=== PATIENT | male | born 1955 | race Caucasian/White ===

== ENCOUNTER 2021-04-12 19:42 | Observation (INO) | payer OTHER, SELFPAY ==
[2021-04-12] VITALS (10 sets, daily range): BP systolic 111–175; BP diastolic 70–86; PULSE 60–85; RESP 18–28; TEMP 36.2–37; O2SAT 93–100
--- NOTE | ~2021-04-12 | CT_ITS ---
EXAMINATION: CT brain wo con DATE: 04/13/2021 13:32 INDICATION: Right arm decreased range of motion post drug overdose TECHNIQUE: Computed tomography (CT) of the head was performed without intravenous contrast. Sagittal and coronal reconstructions were performed. The mA was adjusted according to patient size. Iterative reconstruction technique was employed. The dose-length product was 605.33 mGy-cm. COMPARISON: head CT dated 04/12/2021 FINDINGS: No acute intracranial hemorrhage, acute infarction or abnormal extra axial fluid collection. There is mild scattered white matter hypoattenuation consistent with chronic small vessel ischemic disease. V entricles are normal and symmetric. No mass/mass effect. Small right mastoid effusion. The orbits are normal. Mild mucosal thickening throughout the paranasal sinuses. IMPRESSION: 1. No acute intracranial process. 2. Mild scattered white matter hypoattenuation consistent with chronic small vessel ischemic disease. Reviewed, dictated and finalized at location A. R HEAD PUNCHER IMPRESSION: 1. No acute intracranial process. 2. Mild scattered white matter hypoattenuation consistent with chronic small ve ssel ischemic disease.
--- NOTE | ~2021-04-12 | CT_ITS ---
EXAMINATION: CT brain wo con DATE: 04/12/2021 20:33 INDICATION: Altered mental status. TECHNIQUE: Computed tomography (CT) of the head was performed without intravenous contrast. The dose- length product was 681.00 mGy-cm. Automated exposure control and iterative reconstruction technique w ere employed. COMPARISON: None FINDINGS: There are scattered mild periventricular and subcortical white matter changes, most likely related to small vessel ischemic disease (microangiopathy). No ventriculomegaly or midline shift. Bas ilar cisterns are patent. Mild mucosal thickening of the paranasal sinuses. Mastoids are pneumatized. No acute intracranial hemorrhage, infarction, mass or mass effect. IMPRESSION: 1. No acute intracranial abnormality. 2: Chronic age-related findings. Reviewed, dictated and finalized at location A. E KEEPER
--- NOTE | ~2021-04-12 | XR_ITS ---
EXAMINATION: XR chest 1V portable 04/12/2021 20:33 INDICATION: Respiratory distress PROCEDURE: AP portable chest COMPARISON: No prior studies for comparison. FINDINGS: The lungs are clear. The cardiomediastinal silhouette is within normal limits. There are no pleural effusions. There is no pneumothorax suspected. There is deformity of the left acromiocla vicular joint suggesting chronic AC separation. Possible distal clavicular osteotomy. IMPRESSION: 1: NO ACUTE CARDIOPULMONARY DISEASE. Reviewed, dictated and finalized at location A. EGE AND CAREER COUNSELOR
--- NOTE | ~2021-04-12 | CT_ITS ---
EXAMINATION: CT abdomen pelvis w con DATE: 04/12/2021 21:38 INDICATION: Overdose. Abdominal pain with nausea. TECHNIQUE: Computed tomography (CT) of the abdomen and pelvis was performed with 100 cc Omnipaque 350 intravenous contrast. The dose-length product was 1474.45 mGy-cm. Automated exposure control and ite rative reconstruction technique were employed. COMPARISON: None. FINDINGS: There are patchy groundglass opacities in the lung bases, consistent with pneumonia. Heart size normal. No significant pleural or pericardial effusion. No significant vascular abnormality. The re is a Polo catheter in the bladder. Prostate gland is enlarged. Fatty infiltration of the liver. The spleen, pancreas, adrenal glands and kidneys are unremarkable. G allbladder is present. There is gastric distention with large amount of fluid and debris in the stoma ch. No abnormal pelvic masses or fluid collections. No free air or free fluid. IMPRESSION: 1. Patchy bibasilar groundglass opacities, consistent with pneumonia. Consider aspiration given the c linical history. Reviewed, dictated and finalized at location A. ARC WELDER IMPRESSION: 1. Patchy bibasilar groundglass opacities, consistent with pneumonia. Consider aspiration given the clinical history.
--- NOTE | 2021-04-12 19:48 | ECG_ITS ---
Measurements Intervals [place] Rate: 61 P: -65 TN: 175 QRS: -52 QRSD: 119 T: 59 QT: 478 QTc: 483 Interpretive Statements ECTOPIC ATRIAL RHYTHM LEFT AXIS DEVIATION INCOMPLETE RIGHT BUNDLE BRANCH BLOCK BORDERLINE ST-T WAVE ABNORMALITY- LAT/HIGH LAT LEADS BASELINE ARTIFACT- I, II, III, AVR, AVL, AVF, V1-V6 ABNORMAL ECG Electronically Signed On 04-13-2021 7:56:20 TONE ARTIST APPRENTICE by Arturo Romero D.O.
--- NOTE | 2021-04-12 19:51 | ED.AMS ---
HPI - Altered Mental Status General Chief Complaint: Overdose Stated Complaint: AMB Time Seen by Provider: 04/12/21 19:42 Source: patient Mode of arrival: EMS Limitations: altered mental status History of Present Illness HPI narrative: 65-year-old man with a history of drug use brought to the emergency department after his family found him unconscious and blue and not breathing. He was given a total of 8.5 mg of Narcan and became arousable but not oriented. He required oxygen by nasal cannula to maintain normal sats. Patient complains of nausea and abdominal pain. His glucose in the ambulance was in the 150s. MD complaint: altered mental status, confusion and decreased responsiveness Onset (ago): unknown Severity: severe Consistency of symptoms: constant Context: drug abuse Associated symptoms: nausea/vomiting, shortness of breath and other (Abdominal pain) Treatments prior to arrival: IV fluid, oxygen and other (Narcan) Related Data Home Medications Medication Instructions Recorded Confirmed albuterol sulfate [ProAir HFA] See Rx Instructions .ROUTE .COMPLEX 04/12/21 citalopram [Celexa] See Rx Instructions .ROUTE .COMPLEX 04/12/21 04/12/21 famotidine [Acid Juvenile Detention Officer See Rx Instructions .ROUTE .COMPLEX 04/12/21 04/12/21 (famotidine)] gabapentin [Neurontin] See Rx Instructions .ROUTE .COMPLEX 04/12/21 04/12/21 loratadine [Allergy Relief See Rx Instructions .ROUTE .COMPLEX 04/12/21 04/12/21 (loratadine)] mirtazapine [Remeron] See Rx Instructions .ROUTE .COMPLEX 04/12/21 04/12/21 Allergies Allergy/AdvReac Type Severity Reaction Status Date / Time No Known Allergies Allergy Verified 04/12/21 20:20 Review of Systems Review of Systems: ROS unobtainable: Yes unobtainable due to mental status PMFSH Family History Family History Mother Congestive heart failure Social History Social History Smoking packs per day: 1 Smoking cigarettes per day: 20.0 Years smoked: 46 Smoking pack-years: 46.00 Smoking status: Current every day smoker Tobacco type: cigarettes Alcohol intake: current Drinks per week: 7 Substance use: current Substance use type: marijuana, crack/cocaine and methamphetamine Spiritual care concerns: Yes (pentecostalism) Exam Const: General: confusion and ill appearing acutely Nutritional Appearance: obese Limitations: altered mental status HENMT: Head: normal to inspection Ears: external ears normal, TM's normal bilaterally and EAC's normal General nose exam: Normal nares present Face and sinus: normal facial exam Mouth: Yes moist mucous membranes Throat: posterior oropharynx normal Eyes: Conjunctivae: conjunctivae normal Pupils: Equal, round and reactive pupils present EOM: EOMs intact bilaterally Resp: Effort & Inspection: labored (Mildly), no retractions and no use of accessory muscles Auscultation: rales (Right base) Cardio: Rate: regular rate Rhythm: regular rhythm Heart sounds: no murmurs GI: GI Palp: Yes Soft to palpation, Yes Tenderness to palpation present (GI) (Suprapubic and periumbilical area) and Yes Guarding due to palpation present (GI) (Modest) Auscultation: normal bowel sounds Skin: General skin exam: no jaundice and pallor Rashes: no rashes Neuro: General: moves all extremities, no focal motor deficits and CN's II-XI intact bilaterally Speech: Abnormal speech present (Mumbling) Extrem: Other: No edema or cyanosis. Extremities are cool, pale and dry. Psych: Appearance: disheveled Attitude: cooperative Course Vital Signs Vital signs: Vital Signs Temperature 36.2 C L 04/12/21 20:22 Pulse Rate 60 04/12/21 20:22 Respiratory Rate 28 H 04/12/21 20:22 Blood Pressure 111/80 04/12/21 20:22 Pulse Oximetry 93 04/12/21 20:22 Temperature 36.6 C 04/14/21 12:00 Pulse Rate 76 04/14/21 12:50 Respiratory Rate 16 04/14/21
[2021-04-12] MEDS: SODIUM CHLORIDE 0.9% IV 1,000 ML 999 ML IV CONT (20:00)
[2021-04-12 20:15] LABS: Base Excess ABG 0.1 mmol/L (0-2); HCO3 ABG 27.6 mmol/L (23-29); Oxygen Content ABG 17.9 %vol (16.0-22.0); Oxygen Saturation ABG 87.6 % (95-97); Oxyhemoglobin 85.5 % (94-100); PCO2 ABG 56.4 mmHg (35-45); Total Hemoglobin 14.9 g/dL (12.0-18.0); pH ABG 7.31 (7.35-7.45)
[2021-04-12 20:17] LABS: Device NASAL CANNULA; Modified Allen's Test Pass; Site Drawn RIGHT RADIAL
[2021-04-12 20:18] LABS: Basophils Absolute Auto 0.04 K/mm3 (0.00-0.10); Basophils Percent Auto 0.4 % (0.0-1.0); Eosinophils Absolute Auto 0.33 K/mm3 (0.02-0.50); Eosinophils Percent Auto 3.5 % (1.0-6.0); Hematocrit 44.7 % (40.0-54.0); Hemoglobin 14.9 g/dL (14.0-18.0); Immature Granulocyte Absolute 0.05 K/mm3 (0.00-0.00); Immature Granulocyte Percent A 0.5 % (0.0-0.0); Lymphocytes Absolute Auto 2.41 K/mm3 (1.10-4.50); Lymphocytes Percent Auto 25.5 % (18.0-42.0); Mean Corpuscular HGB Conc 33.3 g/dL (32.0-36.0); Mean Corpuscular Hemoglobin 30.8 pg (27.0-31.0); Mean Corpuscular Volume 92.5 fL (78.0-102.0); Mean Platelet Volume 8.8 fl (8.7-11.0); Monocytes Absolute Auto 0.63 K/mm3 (0.10-0.90); Monocytes Percent Auto 6.7 % (2.0-11.0); Neutrophils Percent Auto 63.4 % (50.0-70.0); Platelet Count Result 219 K/mm3 (150-420); Red Blood Count 4.83 M/mm3 (4.70-6.10); Red Cell Distribution Width 13.4 % (11.6-14.4); White Blood Count 9.5 K/mm3 (4.8-10.8)
[2021-04-12 20:32] LABS: Partial Thromboplastin Time 24.4 SEC (23.90-30.70); Prothrombin Time 10.5 Seconds (9.50-12.10)
[2021-04-12] MEDS: METOCLOPRAMIDE HCL INJ 10 MG/2 ML VIAL IV PUSH (20:35)
[2021-04-12 20:40] LABS: Lactic Acid Reflex 2.4 mmol/L (0.4-2.0)
[2021-04-12 20:42] LABS: Alanine Aminotransferase 37 U/L (16-63); Albumin Level 3.9 g/dL (3.4-5.0); Alkaline Phosphatase 71 U/L (46-116); Anion Gap 10 mmol/L (8-16); Aspartate Amino Transferase 23 U/L (15-37); Bilirubin,Total 0.3 mg/dL (0.00-1.00); Blood Urea Nitrogen 26 mg/dL (7-18); Calcium 8.8 mg/dL (8.5-10.1); Carbon Dioxide 30 mmol/L (21-32); Chloride 102 mmol/L (98-108); Creatine Kinase 304 U/L (39-308); Estimated CRCL calculation 82 ml/min; Estimated Glomerular Filt Rate > 60; Glucose 113 mg/dL (70-99); Osmolality Calculated 299 mOsm/kg (285-295); Potassium 3.5 mmol/L (3.5-5.1); Sodium 142 mmol/L (136-145); Thyroid Stimulating Hormone 4.56 uIU/mL (0.36-3.74); Total Protein 7.6 g/dL (6.4-8.2); Troponin I 10.4 ng/L (0.00-60.4)
[2021-04-12 20:43] LABS: Acetaminophen < 2 ug/mL (10-30); Ethanol < 3 mg/dL (0-6)
[2021-04-12 20:59] LABS: Add Urine Microscopic? YES; Appearance Urine Clear (Clear); Bilirubin Urine Negative (Negative); Blood Urine 1+ (Negative); Color Urine Yellow (Yellow); Glucose Urine UA Negative (Negative); Ketones Urine Negative (Negative); Leukocyte Esterase Ur Negative LEU/UL (Negative); Nitrate Urine Negative (Negative); Protein Urine 1+ (Negative); Specific Grav Ur >= 1.030 (1.010-1.020); Urobilinogen Urine 0.2 mg/dL (0.2-1.0)
[2021-04-12 21:04] LABS: WBC Urine 0-3 /hpf (0-3)
[2021-04-12 21:05] LABS: Bacteria Urine Trace /hpf; Other Sediment Urine Spermatazoa /hpf
[2021-04-12 21:06] LABS: Amphetamine Screen Urine Positive (Negative); Barbiturate Screen Urine Negative (Negative); Benzodiazepines Screen Urine Negative (Negative); Cannabinoid Screen Urine Positive (Negative); Cocaine Screen Urine Positive (Negative); Methadone Screen Urine Negative (Negative); Opiate Screen Urine Negative (Negative); Phencyclidine Screen Urine Negative (Negative)
[2021-04-12 23:15] LABS: Reflex Lactic Acid Yes or No Add Lactic
[2021-04-12] MEDS: DEXTROSE 5%/0.9% SOD CHL 1,000 ML 150 ML IV CONT (23:30)
[2021-04-12 23:44] LABS: Troponin I 24.8 ng/L (0.00-60.4)
[2021-04-12 23:45] LABS: Lactic Acid 1.8 mmol/L (0.4-2.0)
[2021-04-13] VITALS (18 sets, daily range): BP systolic 100–170; BP diastolic 54–93; PULSE 64–98; RESP 12–23; TEMP 36.4–36.6; O2SAT 90–98; BMI 31.2
[2021-04-13] MEDS: IPRATROPIUM 0.5 MG/ALBUTEROL SULFATE 2.5 MG AMPUL.NEB 3 ML INHALATION ×4 (00:37→18:12)
--- NOTE | 2021-04-13 01:18 | PC.NURSE ---
Pt whiteboard updated. Pt is able to answer some questions for admission, but not all. Pt is oriented to the floor and the lights are dimmed in order to reduce external stimuli. Pt is laying on his right side to prevent aspiration. Call light is within reach.
[2021-04-13 04:52] LABS: SARS-CoV-2 RNA PCR Negative (Negative)
[2021-04-13 05:13] LABS: Basophils Absolute Auto 0.02 K/mm3 (0.00-0.10); Basophils Percent Auto 0.2 % (0.0-1.0); Eosinophils Absolute Auto 0.02 K/mm3 (0.02-0.50); Eosinophils Percent Auto 0.2 % (1.0-6.0); Hematocrit 43.5 % (40.0-54.0); Hemoglobin 14.4 g/dL (14.0-18.0); Immature Granulocyte Absolute 0.04 K/mm3 (0.00-0.00); Immature Granulocyte Percent A 0.3 % (0.0-0.0); Lymphocytes Absolute Auto 0.78 K/mm3 (1.10-4.50); Lymphocytes Percent Auto 6.2 % (18.0-42.0); Mean Corpuscular HGB Conc 33.1 g/dL (32.0-36.0); Mean Corpuscular Hemoglobin 30.4 pg (27.0-31.0); Mean Platelet Volume 9.1 fl (8.7-11.0); Monocytes Percent Auto 6.3 % (2.0-11.0); Neutrophils Percent Auto 86.8 % (50.0-70.0); Platelet Count Result 208 K/mm3 (150-420); Red Blood Count 4.73 M/mm3 (4.70-6.10); Red Cell Distribution Width 13.4 % (11.6-14.4); White Blood Count 12.7 K/mm3 (4.8-10.8)
--- NOTE | 2021-04-13 05:18 | PC.NURSE ---
Pt is more communicative with responses then previous earlier in the night. Pt complained of dryness in the mouth and wanted ice water. This news writer educated Servando on what NPO means and why he cannot have fluids by mouth at this time. IV fluids are still running in the L AC. A moistening swab was brought and used on the pt to moisten his mouth. Call light is within reach.
[2021-04-13 05:36] LABS: Alanine Aminotransferase 33 U/L (16-63); Albumin Level 3.2 g/dL (3.4-5.0); Alkaline Phosphatase 54 U/L (46-116); Anion Gap 7 mmol/L (8-16); Aspartate Amino Transferase 25 U/L (15-37); Blood Urea Nitrogen 23 mg/dL (7-18); Calcium 8.1 mg/dL (8.5-10.1); Carbon Dioxide 29 mmol/L (21-32); Chloride 105 mmol/L (98-108); Estimated CRCL calculation 77 ml/min; Estimated Glomerular Filt Rate > 60; Glucose 145 mg/dL (70-99); NT Pro B Type Natriuretic Pept 195 pg/mL (0-125); Osmolality Calculated 298 mOsm/kg (285-295); Potassium 4.4 mmol/L (3.5-5.1); Sodium 141 mmol/L (136-145); Total Protein 6.5 g/dL (6.4-8.2); Troponin I 21.2 ng/L (0.00-60.4)
[2021-04-13] MEDS: DEXTROSE 5%/0.9% SOD CHL 1,000 ML 150 ML IV CONT ×3 (06:57→22:22)
--- NOTE | 2021-04-13 07:34 | PC.NURSE ---
complaints of right arm pain, states can't move it, cursing and moaning in pain, no PRN noted, hospitalist notified, awaiting orders
[2021-04-13] MEDS: ENOXAPARIN 40 MG/0.4 ML SYRINGE SUB-Q (08:36)
[2021-04-13] MEDS: PANTOPRAZOLE SODIUM IV 40 MG VIAL IV PUSH ×2 (08:36→21:05)
[2021-04-13] MEDS: LIDOCAINE 5% PATCH 1 PATCH TRANSDERM (08:37)
[2021-04-13 08:54] LABS: Base Excess ABG 0.6 mmol/L (0-2); Device NASAL CANNULA; HCO3 ABG 26.5 mmol/L (23-29); Modified Allen's Test Pass; Oxygen Content ABG 19.1 %vol (16.0-22.0); Oxygen Saturation ABG 92.6 % (95-97); Oxyhemoglobin 90.9 % (94-100); PCO2 ABG 46.7 mmHg (35-45); PO2 ABG 59.5 mmHg (80-90); Site Drawn LEFT RADIAL; pH ABG 7.37 (7.35-7.45)
--- NOTE | 2021-04-13 10:11 | PC.NURSE ---
bautista removed per patient request, tolerated well
--- NOTE | 2021-04-13 14:14 | PM.IMHP ---
H&P: HPI History of Present Illness Date/Time: 04/13/21 14:14 Servando Schwarz is a 65 year old male admitted under Observation d/t AMS related to Drug Overdose. Pt states that his Over Dose using Methamphetamine, Cocaine, and THC was intentional but not for the purpose of suicide. Pt states that he was thinking about his former who chose to be homeless. He states he intentionally overdosed to get the thoughts of his ex-'s situation out of his mind and not for the purpose of suicide. Crisis Intervention has done an evaluation of this Pt and is was found that the Pt is safe to return home at this time provided he is medically cleared. Pt stated that his right arm has decreased ROM ever since last night when he came to the ER. An attempt was made to transfer him / get neurology to consider transfer for this deficit. An additional CT of the head was obtained and there is no findings of stroke. However, it was noted by staff that he Pt was able to use his arm when getting in and out of a w/c when being transported to CT. Upon his arrival back to his room I worked with him and he was able to move his right arm with minimal difficulty and he did have good strength to resist pressure applied in all directions for his shoulder, elbow, and wrist, with good retaining room cutter in his fingers. Pt does not have any complaints at this time other than wanting to return home. He did agree to stay for IV Ab for his Aspiration Pneumonia. <ARNIE Granger - Last Filed: 04/13/21 15:04> Chief Complaint: AMS, Drug Overdose <ARNIE Granger - Last Filed: 04/13/21 15:04> Review of Systems Review of Systems: All systems reviewed & are unremarkable except as noted in HPI and below <ARNIE Granger - Last Filed: 04/13/21 15:04> Constitutional: Constitutional: Reports no additional constitutional complaints, Denies body ache(s), Denies chills, Denies fever(s), Denies headache(s) and Reports weakness (right arm which is resolved) <ARNIE Granger - Last Filed: 04/13/21 15:04> Cardiovascular: Cardiovascular: Reports no additional cardiovascular complaints, Denies chest pain, Denies chest pain at rest, Denies chest pain with activity, Denies syncope and Denies lightheadedness <ARNIE Granger - Last Filed: 04/13/21 15:04> Respiratory: Respiratory: Reports no additional respiratory complaints, Denies cough, Denies dyspnea and Denies dyspnea on exertion <ARNIE Granger - Last Filed: 04/13/21 15:04> Gastrointestinal: Gastrointestinal: Reports no additional gastrointestinal complaints, Denies abdominal pain and Denies dysphagia <ARNIE Granger - Last Filed: 04/13/21 15:04> Genitourinary: Genitourinary: Reports no additional male genitourinary complaints <ARNIE Granger - Last Filed: 04/13/21 15:04> Musculoskeletal: Musculoskeletal: Reports as per HPI <ARNIE Granger - Last Filed: 04/13/21 15:04> Neurologic: Reports as per HPI <ARNIE Granger - Last Filed: 04/13/21 15:04> Psychiatric: Psychiatric: Reports no additional psychiatric complaints <ARNIE Granger - Last Filed: 04/13/21 15:04> [facility] Family History Family History: Family History Mother Congestive heart failure <ARNIE Granger - Last Filed: 04/13/21 15:04> Social History Social History: Social History Smoking packs per day: 1 Smoking cigarettes per day: 20.0 Years smoked: 46 Smoking pack-years: 46.00 Smoking status: Current every day smoker Tobacco type: cigarettes Alcohol intake: current Drinks per week: 7 Substance use: current Substance use type: marijuana, crack/cocaine and methamphetamine Spiritual care concerns: Yes (jewish) <ARNIE Granger - Last Filed: 04/13/21 15:04> Meds Home Medications and Allergies Home medications: Home Medication
[2021-04-14] VITALS (12 sets, daily range): BP systolic 109–131; BP diastolic 55–73; PULSE 68–95; RESP 16–20; TEMP 36.2–36.6; O2SAT 93–99
[2021-04-14] MEDS: IPRATROPIUM 0.5 MG/ALBUTEROL SULFATE 2.5 MG AMPUL.NEB 3 ML INHALATION ×3 (02:12→12:43)
[2021-04-14 05:27] LABS: Hematocrit 39.3 % (40.0-54.0); Hemoglobin 12.7 g/dL (14.0-18.0); Mean Corpuscular HGB Conc 32.3 g/dL (32.0-36.0); Mean Corpuscular Hemoglobin 29.8 pg (27.0-31.0); Mean Corpuscular Volume 92.3 fL (78.0-102.0); Mean Platelet Volume 9.5 fl (8.7-11.0); Platelet Count Result 168 K/mm3 (150-420); Red Blood Count 4.26 M/mm3 (4.70-6.10); Red Cell Distribution Width 13.6 % (11.6-14.4); White Blood Count 13.3 K/mm3 (4.8-10.8)
[2021-04-14] MEDS: DEXTROSE 5%/0.9% SOD CHL 1,000 ML 150 ML IV CONT (05:31)
[2021-04-14 05:33] LABS: Anion Gap 7 mmol/L (8-16); Blood Urea Nitrogen 15 mg/dL (7-18); Calcium 7.9 mg/dL (8.5-10.1); Carbon Dioxide 28 mmol/L (21-32); Chloride 103 mmol/L (98-108); Estimated CRCL calculation 95 ml/min; Estimated Glomerular Filt Rate > 60; Glucose 122 mg/dL (70-99); Osmolality Calculated 287 mOsm/kg (285-295); Potassium 3.8 mmol/L (3.5-5.1); Sodium 138 mmol/L (136-145)
--- NOTE | 2021-04-14 07:10 | PCPTNOTE ---
04/13/21 - no plan of care made this date as patient is being DC'd from skilled PT services as of this date. Juan DavidTF
[2021-04-14] MEDS: BISACODYL 5 MG TABLET EC PO (09:24)
[2021-04-14] MEDS: ENOXAPARIN 40 MG/0.4 ML SYRINGE SUB-Q (09:24)
[2021-04-14] MEDS: LIDOCAINE 5% PATCH 1 PATCH TRANSDERM (09:24)
[2021-04-14] MEDS: PANTOPRAZOLE SODIUM IV 40 MG VIAL IV PUSH (09:25)
[2021-04-14] MEDS: LORATADINE 10 MG TABLET PO (09:25)
--- NOTE | 2021-04-14 14:13 | PM.DS ---
DS: Admitting Diagnosis Discharge Date 04/14/2021 Admitting Diagnosis Respiratory failure with hypoxia and hypercapnia, Aspiration pneumonia, Overdose, Drug abuse dependence, COPD, GERD, Allergies, Monday Night Palsy DS: Discharge Diagnosis Discharge Diagnosis (1) Respiratory failure with hypoxia and hypercapnia: Qualifiers: Chronicity: acute Qualified Code(s): J96.01 - Acute respiratory failure with hypoxia; J96.02 - Acute respiratory failure with hypercapnia Code(s): J96.91 - Respiratory failure, unspecified with hypoxia; J96.92 - Respiratory failure, unspecified with hypercapnia Status: Acute Assessment and Plan: Currently 2 L NC, Initial ABG: pH 7.31, pCO2 56.4, pO2 55, HCO3 27.6, O2 Sat 87.6; ABG this AM pH 7.37, pCO2 46.7, pO2 59.5, HCO3 26.5, O2 Sat 92.6; Respiratory status improving, Over Dose resolved, Pt alert and oriented X 4, unknown down time with OD but was witnessed to have turned purple 04/14/2021 This has resolved, Pt has SpO2 at 99%, no SOB, skin is normal color (2) Aspiration pneumonia: Qualifiers: Aspiration pneumonia type: due to regurgitated food Laterality: right Lung location: lower lobe of lung Qualified Code(s): J69.0 - Pneumonitis due to inhalation of food and vomit Code(s): J69.0 - Pneumonitis due to inhalation of food and vomit Status: Acute Assessment and Plan: Due to OD of Amphetamine, Cocaine, THC, RLL Pneumonia, covered with Zosyn, Pt agreed to stay 1 night meaning he will likely sign out AMA tomorrow, if this is the case will write for PO Ab at that time. 04/14/2021 Will continue Augmentin at DC for Aspiration Pneumonia (3) Overdose: Qualifiers: Encounter type: initial encounter Injury intent: undetermined intent Qualified Code(s): T50.904A - Poisoning by unspecified drugs, medicaments and biological substances, undetermined, initial encounter Code(s): T50.901A - Poisoning by unspecified drugs, medicaments and biological substances, accidental (unintentional), initial encounter Status: Acute Assessment and Plan: As noted in HPI, Pt is A&OX4, Pt refused rehabilitation, Crisis Intervention consulted and Pt was found safe to return home, unknown down time with OD but was witnessed to have turned purple 04/14/2021 Pt still refuses rehabilitation but did have information given to him by Crisis Intervention (4) Drug abuse and dependence: Code(s): F19.20 - Other psychoactive substance dependence, uncomplicated Status: Acute Assessment and Plan: Positive for Meth, Cocaine, THC, refuses rehabilitation, neighbor friend states contributors have been removed and banned from his home. Crisis Interventions spoke with Pt 04/14/2021 Same as Overdose above. (5) COPD (chronic obstructive pulmonary disease): Qualifiers: COPD type: unspecified COPD Qualified Code(s): J44.9 - Chronic obstructive pulmonary disease, unspecified Code(s): J44.9 - Chronic obstructive pulmonary disease, unspecified Status: Acute Assessment and Plan: Chronic and stable at this time. Albuterol PRN, 2 L/min NC, SpO2 >92% 04/14/2021 Chronic and Stable (6) GERD (gastroesophageal reflux disease): Qualifiers: Esophagitis presence: esophagitis presence not specified Qualified Code(s): K21.9 - Gastro-esophageal reflux disease without esophagitis Code(s): K21.9 - Gastro-esophageal reflux disease without esophagitis Status: Acute Assessment and Plan: Protonix (7) Allergies: Code(s): T78.40XA - Allergy, unspecified, initial encounter Status: Acute Assessment and Plan: Will order Loratadine. (8) Monday night nerve palsy: Code(s): G56.30 - Lesion of radial nerve, unspecified upper limb Status: Acute Assessment and Plan: Pt having difficulty moving right arm, elbow, wrist, fingers, Pt had unknown down time with OD but was witnessed to hav
--- NOTE | 2021-04-14 14:40 | PC.NURSE ---
All discharge instructions and education reviewed with patient and his son. Both parties state understanding. IV site removed, tip intact. Dressing applied to site, pt. tolerated well. Patient denies any questions or concerns at this time. Taken down to front door via wheelchair by this nurse, pt. left via private vehicle with son.
--- NOTE | 2021-04-16 19:11 | PC.NURSE ---
normal saline stopped 2030
--- NOTE | 2021-04-19 13:05 | PC.NURSE ---
Invalid phone number for discharge call back.
--- NOTE | 2021-04-21 06:33 | PC.NURSE ---
Patient Zosyn on 04/14/21 was administered at 0212 and discontinued at 312.
== END 2021-04-14 14:40 | disposition home or self-care (01) ==
LOC: CHSED 19:47 → CHS2ND 22:05
PROVIDERS: Nurse Practitioner Family; Admitting Provider Emergency Medicine; Emergency Provider Emergency Medicine; PCP Physician Assistant; Visit Provider Emergency Medicine
DX: T40.5X4A Poisoning by cocaine, undetermined, initial encounter (principal); T43.624A Poisoning by amphetamines, undetermined, initial encounter; T40.714A Poisoning by cannabis, undetermined, initial encounter; J69.0 Pneumonitis due to inhalation of food and vomit; J96.01 Acute respiratory failure with hypoxia; J96.02 Acute respiratory failure with hypercapnia; R06.02 Shortness of breath; F17.210 Nicotine dependence, cigarettes, uncomplicated; F14.90 Cocaine use, unspecified, uncomplicated; F12.90 Cannabis use, unspecified, uncomplicated; F15.90 Other stimulant use, unspecified, uncomplicated; G56.30 Lesion of radial nerve, unspecified upper limb; Z20.822 Contact with and (suspected) exposure to COVID-19; Z79.899 Other long term (current) drug therapy
CPT/HCPCS: 36415; 36600; 70450; 71045; 74177; 80048; 80053; 80307; 81001; 82550; 82805; 83605; 83880; 84443; 84484; 85025; 85027; 85610; 85730; 87040; 87086; 93005; 94640; 96361; 96365; 96366; 96372; 96375; 96376; 97161; 99285; A9270; C9113; C9803; G0378; G0379; J1650; J2310; J2405; J2543; J2765; J7030; J7042; Q9967; U0003; U0005

== ENCOUNTER 2021-06-26 02:54 | Observation (INO) | payer OTHER, SELFPAY ==
--- NOTE | ~2021-06-26 | CT_ITS ---
EXAMINATION: CT BRAIN W/O DATE: 06/26/2021 04:06 INDICATION: TECHNIQUE: Computed tomography (CT) of the head was performed without intravenous contrast. The dose- length product was 681.00 mGy-cm. COMPARISON: No prior studies for comparison. FINDINGS: Study is significantly limited by motion artifact. Normal brain parenchymal volume for age. There are scattered mild periventricular and subcortical white matter changes, most likely related t o small vessel ischemic disease (microangiopathy). Normal monaco-white differentiation. No acute intrac ranial hemorrhage, infarction, mass or mass effect. No ventriculomegaly or midline shift. Midline sagittal images demonstrate a normal corpus callosum, c raniovertebral junction and sella turcica. Basilar cisterns are patent. Paranasal sinuses and mastoids are pneumatized. No depressed skull fractures. IMPRESSION: 1. No acute intracranial abnormality. Limited study. Reviewed, dictated and finalized at location A. OELECTRONICS ENGINEER
--- NOTE | ~2021-06-26 | XR_ITS ---
XR chest 1V portable 06/26/2021 04:07 Indication: Syncope. Overdose. Procedure: 2 view chest Comparison: 04/12/2021 Findings: There is bilateral airspace disease, right greater than left, consistent with pneumonia. No significant effusion or pneumothorax. Heart size normal. No acute osseous abnormality. Impression: 1: Bilateral airspace disease, consistent with pneumonia. Consider aspiration. Reviewed, dictated and finalized at location A. RELINER Impression: 1: Bilateral airspace disease, consistent with pneumonia. Consider aspiration.
[2021-06-26 03:01] VITALS: BP 113/88; PULSE 86; RESP 16; TEMP 36.6; O2SAT 93
--- NOTE | 2021-06-26 03:04 | ECG_ITS ---
Measurements Intervals [place] Rate: 66 P: 67 TX: 200 QRS: -47 QRSD: 113 T: 52 QT: 450 QTc: 474 Interpretive Statements SINUS RHYTHM FREQUENT ATRIAL PREMATURE COMPLEXES LEFT AXIS DEVIATION INCOMPLETE RIGHT BUNDLE BRANCH BLOCK BASELINE ARTIFACT- II, III, AVR, AVL, AVF, V1-V2, V4-V6 ABNORMAL ECG Electronically Signed On 06-26-2021 7:12:54 [employer]IPE FITTER [employer] SPR[employer] by Arturo Roemro D.O.
[2021-06-26] MEDS: SODIUM CHLORIDE 0.9% IV 1,000 ML 999 ML IV CONT ×2 (03:05→03:36)
[2021-06-26 03:06] VITALS: RESP 16
[2021-06-26 03:21] LABS: Basophils Absolute Auto 0.03 K/mm3 (0.00-0.10); Basophils Percent Auto 0.4 % (0.0-1.0); Eosinophils Absolute Auto 0.13 K/mm3 (0.02-0.50); Eosinophils Percent Auto 1.6 % (1.0-6.0); Hematocrit 44.6 % (40.0-54.0); Hemoglobin 14.6 g/dL (14.0-18.0); Immature Granulocyte Absolute 0.03 K/mm3 (0.00-0.00); Immature Granulocyte Percent A 0.4 % (0.0-0.0); Lymphocytes Absolute Auto 1.62 K/mm3 (1.10-4.50); Mean Corpuscular HGB Conc 32.7 g/dL (32.0-36.0); Mean Corpuscular Hemoglobin 30.4 pg (27.0-31.0); Mean Corpuscular Volume 92.7 fL (78.0-102.0); Mean Platelet Volume 8.9 fl (8.7-11.0); Monocytes Absolute Auto 0.53 K/mm3 (0.10-0.90); Monocytes Percent Auto 6.6 % (2.0-11.0); Neutrophils Absolute Auto 5.7 K/mm3 (1.7-7.2); Platelet Count Result 238 K/mm3 (150-420); Red Blood Count 4.81 M/mm3 (4.70-6.10); Red Cell Distribution Width 12.7 % (11.6-14.4); White Blood Count 8.1 K/mm3 (4.8-10.8)
[2021-06-26 03:36] LABS: SARS-CoV-2 Ag Negative (Negative)
[2021-06-26] MEDS: NALOXONE HCL 0.4 MG/ML VIAL IV PUSH ×2 (03:36→04:34)
[2021-06-26 03:37] LABS: Alanine Aminotransferase 42 U/L (16-63); Albumin Level 3.9 g/dL (3.4-5.0); Alkaline Phosphatase 80 U/L (46-116); Anion Gap 8 mmol/L (8-16); Aspartate Amino Transferase 21 U/L (15-37); Bilirubin,Total 0.3 mg/dL (0.00-1.00); Blood Urea Nitrogen 21 mg/dL (7-18); Calcium 8.8 mg/dL (8.5-10.1); Carbon Dioxide 30 mmol/L (21-32); Chloride 104 mmol/L (98-108); Estimated Glomerular Filt Rate > 60; Glucose 110 mg/dL (70-99); Osmolality Calculated 298 mOsm/kg (285-295); Potassium 4.2 mmol/L (3.5-5.1); Salicylate 1.9 mg/dL (2.8-20.0); Sodium 142 mmol/L (136-145); Total Protein 7.7 g/dL (6.4-8.2)
[2021-06-26 03:40] LABS: Acetaminophen < 2 ug/mL (10-30); Ethanol < 3 mg/dL (0-6)
--- NOTE | 2021-06-26 03:40 | ED.OVERDOSE ---
HPI - Overdose General Chief Complaint: Overdose Stated Complaint: DRUG OVERDOSE Time Seen by Provider: 06/26/21 02:56 Source: patient, EMS and RN notes reviewed Mode of arrival: EMS Limitations: clinical condition (pt was using Fentanyl and collapsed, needing CPR) History of Present Illness complaint: accidental overdose Onset (ago): hour(s) (1) Timing confirmed by: family member Intent: unknown How Overdose Was Discovered: family/friend present at time Context: Accidental Overdose: wanted to get high Associated symptoms: syncope Treatments Prior to Arrival: other (see EMS and nurses' notes.) Related Data Home Medications Medication Instructions Recorded Confirmed albuterol sulfate [ProAir HFA] See Rx Instructions .ROUTE .COMPLEX 04/12/21 06/26/21 citalopram [Celexa] See Rx Instructions .ROUTE .COMPLEX 04/12/21 06/26/21 famotidine [Acid Chemical Production Engineer See Rx Instructions .ROUTE .COMPLEX 04/12/21 06/26/21 (famotidine)] gabapentin [Neurontin] See Rx Instructions .ROUTE .COMPLEX 04/12/21 06/26/21 loratadine [Allergy Relief See Rx Instructions .ROUTE .COMPLEX 04/12/21 06/26/21 (loratadine)] mirtazapine [Remeron] See Rx Instructions .ROUTE .COMPLEX 04/12/21 06/26/21 Allergies Allergy/AdvReac Type Severity Reaction Status Date / Time No Known Allergies Allergy Verified 06/26/21 03:08 Review of Systems Review of Systems: All systems reviewed & are unremarkable except as noted in HPI and below PMFSH Past Medical History Medical History Altered mental status Drug abuse and dependence Overdose Family History Family History Mother Congestive heart failure Social History Social History Smoking packs per day: 1 Smoking cigarettes per day: 20.0 Years smoked: 46 Smoking pack-years: 46.00 Smoking status: Current every day smoker Tobacco type: cigarettes Alcohol intake: current Drinks per week: 7 Substance use: current Substance use type: marijuana, crack/cocaine and methamphetamine Spiritual care concerns: Yes (religious) Exam Const: Limitations: altered mental status (Pt was very drowsy but arousable with sternal rub) HENMT: Head: normal to inspection Ears: external ears normal, TM's normal bilaterally and EAC's normal General nose exam: Normal external nose present and Normal nares present Face and sinus: normal facial exam Mouth: Yes lip normal and Yes moist mucous membranes Throat: posterior oropharynx normal Eyes: Conjunctivae: conjunctivae normal Pupils: Equal, round and reactive pupils present EOM: EOMs intact bilaterally Neck: Neck: normal visual inspection Chest: Chest palpation & inspection: normal inspection of the chest Resp: Effort & Inspection: normal respiratory effort Auscultation: clear to auscultation bilaterally Cardio: Rate: regular rate Rhythm: regular rhythm GI: GI Palp: Yes Soft to palpation and No Tenderness to palpation present (GI) Auscultation: normal bowel sounds : General: Yes bladder normal to palpation and Yes no CVA tenderness Male General Exam: Yes normal external exam Back/Spine/Pelvis: Back: no CVA tenderness Skin: General skin exam: normal color Rashes: no rashes Neuro: General: moves all extremities, no meningeal signs, no focal motor deficits and CN's II-XI intact bilaterally Cranial nerves: Yes Nystagmus not present Motor exam (neuro): 5/5 motor strength present throughout, No tremor noted, No asterixis, Motor fasciculations not present, Normal motor muscle tone present throughout and Motor abnormalities not present Extrem: General: no pedal edema Psych: Appearance: grossly normal Affect: Sad affect present Thought content: Yes other (pt responded to questions but did not speak at length) Course Course Emergency Course: Pt was ill but stable in the ED. He res
[2021-06-26 03:55] LABS: Lactic Acid Reflex 2.4 mmol/L (0.4-2.0)
[2021-06-26] MEDS: NALOXONE HCL 0.4 MG/ML VIAL (03:57)
[2021-06-26 04:01] LABS: Thyroid Stimulating Hormone 3.18 uIU/mL (0.36-3.74); Troponin I 15.6 ng/L (0.00-60.4)
[2021-06-26 04:09] LABS: Base Excess ABG -2.2 mmol/L (0-2); HCO3 ABG 24.5 mmol/L (23-29); Oxygen Content ABG 15.2 %vol (16.0-22.0); Oxygen Saturation ABG 78.3 % (95-97); Oxyhemoglobin 76.5 % (94-100); Total Hemoglobin 14.2 g/dL (12.0-18.0); pH ABG 7.32 (7.35-7.45)
[2021-06-26 04:12] LABS: Device ROOM AIR; Modified Allen's Test Pass; Site Drawn RIGHT RADIAL
[2021-06-26 04:13] LABS: PO2 ABG 44.8 mmHg (80-90)
--- NOTE | 2021-06-26 04:25 | PC.NURSE ---
Pt refusing to urinate and refusing straight cath at this time. also adjusting pulse ox attachment
[2021-06-26] MEDS: SODIUM BICARBONATE 8.4% 50 MEQ/50 ML SYRINGE IV PUSH (04:50)
[2021-06-26] MEDS: methylPREDNISolone SOD SUCC 125 MG VIAL IV PUSH (04:51)
[2021-06-26 06:23] VITALS: BP 131/78; PULSE 64; RESP 26; TEMP 37.1; O2SAT 93
--- NOTE | 2021-06-26 06:27 | PC.NURSE ---
0555: Patient admitted to room 206 from ER for drug overdose and aspiration pneumonia
[2021-06-26 06:29] VITALS: BMI 28.7
[2021-06-26 06:38] LABS: Reflex Lactic Acid Yes or No Add Lactic
[2021-06-26 08:00] VITALS: PULSE 71
[2021-06-26 08:11] LABS: Lactic Acid 1.2 mmol/L (0.4-2.0)
[2021-06-26] MEDS: ENOXAPARIN 40 MG/0.4 ML SYRINGE SUB-Q (08:24)
[2021-06-26] MEDS: UMECLIDINIUM BROMIDE 62.5 MCG ELLIPTA 1 PUFF INHALATION (08:24)
[2021-06-26 12:00] VITALS: PULSE 74
--- NOTE | 2021-06-26 13:01 | PM.IMHP ---
H&P: HPI History of Present Illness Date/Time: 06/26/21 13:01 [facility] Past Medical History Medical History Altered mental status Drug abuse and dependence Overdose Family History Family History Mother Congestive heart failure Social History Social History Smoking packs per day: 1 Smoking cigarettes per day: 20.0 Years smoked: 46 Smoking pack-years: 46.00 Smoking status: Unknown if ever smoked Tobacco type: cigarettes Alcohol intake: unknown Drinks per week: 7 Substance use: current Substance use type: opiates and other Last use: 06/26/21 Spiritual care concerns: No (patient unable to answer) Meds Home Medications and Allergies Home Medications Medication Instructions Recorded Confirmed Type albuterol sulfate [ProAir HFA] See Rx Instructions .ROUTE .COMPLEX 04/12/21 06/26/21 History citalopram [Celexa] See Rx Instructions .ROUTE .COMPLEX 04/12/21 06/26/21 History famotidine [Acid Plastic Tool Maker See Rx Instructions .ROUTE .COMPLEX 04/12/21 06/26/21 History (famotidine)] gabapentin [Neurontin] See Rx Instructions .ROUTE .COMPLEX 04/12/21 06/26/21 History loratadine [Allergy Relief See Rx Instructions .ROUTE .COMPLEX 04/12/21 06/26/21 History (loratadine)] mirtazapine [Remeron] See Rx Instructions .ROUTE .COMPLEX 04/12/21 06/26/21 History Allergies Allergy/AdvReac Type Severity Reaction Status Date / Time No Known Allergies Allergy Verified 06/26/21 03:08 Vital Signs Vital Signs - 24 hr 06/26/21 03:01 06/26/21 03:06 06/26/21 06:23 Temperature 98 F 98.7 F Pulse Rate 86 64 Respiratory Rate 16 16 26 H Blood Pressure 113/88 131/78 Pulse Oximetry 93 93 06/26/21 08:00 06/26/21 12:00 Temperature Pulse Rate 71 74 Respiratory Rate Blood Pressure Pulse Oximetry H&P: Results Labs Labs: Short CBC 06/26/21 Range/Units 03:14 WBC 8.1 (4.8-10.8) K/mm3 Hgb 14.6 (14.0-18.0) g/dL Hct 44.6 (40.0-54.0) % Plt Count 238 (150-420) K/mm3 BMP 06/26/21 03:14 Sodium 142 Potassium 4.2 Chloride 104 Carbon Dioxide 30 BUN 21 H Creatinine 1.15 Glucose 110 H Calcium 8.8 Cardiac Enzymes 06/26/21 Range/Units 03:14 Troponin I 15.6 (0.00-60.4) ng/L Liver Function 06/26/21 Range/Units 03:14 Total Bilirubin 0.3 (0.00-1.00) mg/dL AST 21 (15-37) U/L ALT 42 (16-63) U/L Alkaline Phosphatase 80 (46-116) U/L Albumin 3.9 (3.4-5.0) g/dL Assessment and Plan Assessment and plan (1) Drug abuse and dependence: Code(s): F19.20 - Other psychoactive substance dependence, uncomplicated Status: Acute (2) Altered mental status: Qualifiers: Altered mental status type: coma Coma depth: [place] coma 3-8 Coma timing: in the field (EMT or ambulance) Qualified Code(s): R40.2431 - [place] coma scale score 3-8, in the field [EMT or ambulance] Code(s): R41.82 - Altered mental status, unspecified Status: Acute (3) Acute respiratory failure with hypoxia: Code(s): J96.01 - Acute respiratory failure with hypoxia Status: Acute
--- NOTE | 2021-06-26 13:07 | PM.SD2 ---
Same Day Admit/Disch: HPI History of Present Illness Chief complaint: DRUG OVERDOSE Narrative: Servando Schwarz is a 65 year old male was using fentanyl and passed out according to EMS CPR was initiated by family. Patient was given Narcan x3 in the emergency room possible aspiration pneumonia. Patient laid in the bed and slept on the traffic monitor specialist remained sinus rhythm was given oxygen satting 93 to 94%. Initially was unable to get information from patient. After about 2 to 3 hours of sleeping patient had awakened did not either and satting 97 to 98% was wanting to go home. I personally assisted patient up to the recliner chair he had eaten lunch 100% drinking Pepsi. According to patient he now denies using fentanyl and states that he had medication that he must have taken twice. I had a discussion with patient about staying for another 24 hours so we could continue to monitor him. I later received a phone call that patient left AGAINST MEDICAL ADVICE refused to stay. [facility] Past Medical History Medical History Altered mental status Drug abuse and dependence Overdose Family History Family History Mother Congestive heart failure Social History Social History Smoking packs per day: 1 Smoking cigarettes per day: 20.0 Years smoked: 46 Smoking pack-years: 46.00 Smoking status: Unknown if ever smoked Tobacco type: cigarettes Alcohol intake: unknown Drinks per week: 7 Substance use: current Substance use type: opiates and other Last use: 06/26/21 Spiritual care concerns: No (patient unable to answer) Same Day Admit/Disch: Med Pre-admit Medications Home Medications Medication Instructions Recorded Confirmed Type albuterol sulfate [ProAir HFA] See Rx Instructions .ROUTE .COMPLEX 04/12/21 06/26/21 History citalopram [Celexa] See Rx Instructions .ROUTE .COMPLEX 04/12/21 06/26/21 History famotidine [Acid School Services Officer See Rx Instructions .ROUTE .COMPLEX 04/12/21 06/26/21 History (famotidine)] gabapentin [Neurontin] See Rx Instructions .ROUTE .COMPLEX 04/12/21 06/26/21 History loratadine [Allergy Relief See Rx Instructions .ROUTE .COMPLEX 04/12/21 06/26/21 History (loratadine)] mirtazapine [Remeron] See Rx Instructions .ROUTE .COMPLEX 04/12/21 06/26/21 History Exam Narrative: GENERAL: Disheveled well-nourished and in no acute distress. HEAD:Normocephalic, EYES: PERRLA ENT: Nares clear,. Mucous membranes moist. CHEST: Clear to auscultation. No respiratory distress. HEART: Regular rate and rhythm. Normal peripheral pulses. ABDOMEN: Soft, normal active bowel sounds. EXTREMITIES: Normal range of motion. No edema. SKIN: Warm, dry, no rash. NEURO: No focal deficits. Alert and oriented x3. Anxious and grumpy DS: Data Data Completed and Pending Labs on day of discharge: Labs from last 24 hours 06/26/21 06/26/21 06/26/21 07:43 03:56 03:14 WBC RBC Hgb Hct MCV MCH MCHC RDW Plt Count MPV Immature Gran % (Auto) Neut % (Auto) Lymph % (Auto) Hartley % (Auto) Eos % (Auto) Baso % (Auto) Lymph # (Auto) Hartley # (Auto) Eos # (Auto) Baso # (Auto) Abs Immat Gran (auto) Absolute Neuts (auto) Absolute Nucleated RBC Nucleated RBC % Puncture Site Right radial ABG pH 7.32 L ABG pCO2 49.0 H ABG pO2 44.8 L ABG PO2/FiO2 Ratio Not Reportable ABG HCO3 24.5 ABG O2 Saturation 78.3 L ABG O2 Content 15.2 L ABG Base Excess -2.2 L A-a Gradient Not Reportable Oxyhemoglobin 76.5 L Total Hemoglobin 14.2 O2 Delivery Device Room air O2 Liters/Min 0.0 Sodium Potassium Chloride Carbon Dioxide Anion Gap BUN Creatinine Estim Creat Clear Calc Estimated GFR Glucose Calculated Osmolality Lact
[2021-06-26 14:00] VITALS: BP 122/68; PULSE 88; RESP 18; TEMP 36.9; O2SAT 97
--- NOTE | 2021-06-26 14:46 | PC.NURSE ---
1420, Patient left AMA after signing himself out. Patient left on foot after staff advised him that the weather is cold, slick and that walking would not likely be a good idea. Transformer Shop Supervisor escorted patient to the front door and patient walked away. Charge nurse made multiple calls attempting to arrange a ride prior to patient leaving. Patient took belongings with him.
--- NOTE | 2021-06-28 11:53 | PC.NURSE ---
Phone disconnected. Unable to contact for discharge call back.
== END 2021-06-26 14:25 | disposition left against medical advice (07) ==
LOC: CHSED 04:40 → CHS2ND 14:03
PROVIDERS: Admitting Provider Emergency Medicine; Emergency Provider Emergency Medicine; PCP Physician Assistant; Visit Provider Emergency Medicine
DX: T50.904A Poisoning by unspecified drugs, medicaments and biological substances, undetermined, initial encounter (principal); J69.0 Pneumonitis due to inhalation of food and vomit; J96.01 Acute respiratory failure with hypoxia; F19.20 Other psychoactive substance dependence, uncomplicated; Z20.822 Contact with and (suspected) exposure to COVID-19
CPT/HCPCS: 36415; 36600; 70450; 71045; 80053; 80307; 82805; 83605; 84443; 84484; 85025; 87040; 87426; 93005; 96361; 96372; 96374; 96375; 96376; 99285; A9270; C9803; G0378; G0379; J0696; J1650; J2310; J2930; J7030

== ENCOUNTER 2021-08-11 20:56 | Emergency (ER) | payer OTHER, SELFPAY ==
--- NOTE | ~2021-08-11 | XR_ITS ---
EXAMINATION: XR chest 1V portable EXAM DATE: 08/11/2021 22:50 INDICATION: Cough with weakness TECHNIQUE: Portable AP frontal chest x-ray was obtained. Comparison is made to prior examination from 06/26/2021. FINDINGS: There is segmental left upper lobe airspace disease, most likely pneumonia. This is new com pared to last month making cancer unlikely but follow-up examination in one month is recommended. Car diomediastinal silhouette is normal. There is no pneumothorax suspected. There are bony degenerative changes. IMPRESSION: Development of segmental left upper lobe consolidation, probably pneumonia. Recommend on e-month follow-up exam. Reviewed, dictated and finalized at location G. IMPRESSION: Development of segmental left upper lobe consolidation, probably p neumonia. Recommend one-month follow-up exam.
--- NOTE | ~2021-08-11 | CT_ITS ---
EXAMINATION: CTA chest PE abdomen pel DATE: 08/12/2021 07:39 CDT INDICATION: Abdominal pain. Chest pain. Elevated d-dimer. TECHNIQUE: Computed tomographic angiography (CTA) of the chest was performed with 100 mL Omnipaque-35 0 intravenous contrast. The dose-length product was 980.42 mGy-cm. Maximum intensity projection 3D-re constructions of the aorta and other arteries were constructed by the technologist on a separate work station. COMPARISON: CT dated 04/12/2021. FINDINGS: Study limited for evaluation of pulmonary embolism secondary to motion and suboptimal pulmo nary artery contrast. No thoracic lymphadenopathy. Heart size normal. No significant pleural or peric ardial effusion. Small hiatal hernia. No evidence for aortic aneurysm or dissection. There is left up per lobe airspace consolidation which may represent pneumonia or pulmonary infarct. No pneumothorax. No endobronchial lesions. There is a 5 mm right upper lobe nodule which is subsolid, most likely infe ctious/inflammatory. There are groundglass opacities in the left lower lobe. IMPRESSION: 1. Evaluation for pulmonary embolism limited. 2: Focal consolidation left upper lobe with groundglass opacities left lower lobe. Differential diag nosis includes pneumonia and pulmonary infarction. 3: Subsolid 5 mm right upper lobe nodule, likely benign. Follow-up low dose CT chest in 12 months rec ommended. Reviewed, dictated and finalized at location A. IMPRESSION: 1. Evaluation for pulmonary embolism limited. 2: Focal consolidation left upper lobe with groundglass opacities left lower l obe. Differential diagnosis includes pneumonia and pulmonary infarction. 3: Subsolid 5 mm right upper lobe nodule, likely benign. Follow-up low dose CT chest in 12 months recommended.
--- NOTE | ~2021-08-11 | CT_ITS ---
EXAMINATION: CT brain wo con EXAM DATE: 08/11/2021 22:50 INDICATION: AMS. confusion. weakness. not communicating. TECHNIQUE: Spiral CT of the head was performed without contrast. Axial, coronal and sagittal images were reviewed. The dose-length product (DLP) for this examination was 681.00 mGy-cm. The exposure w as tailored according to patient size, and iterative reconstruction (ASIR) was used as additional dos e reduction technique. Comparison is made to prior examination from 06/26/2021. FINDINGS: There is no acute intraparenchymal hemorrhage. No evidence of intraparenchymal brain mass lesion. Mild microangiopathy. No evidence of acute infarction. There is no mass effect or midline sh ift. The ventricles are normal in size. There are no extra-axial collections. There are no acute c alvarial fractures. The orbits are unremarkable. Soft tissue is unremarkable. The visualized sinuse s and mastoid air cells are well aerated. IMPRESSION: No acute intracranial findings. Reviewed, dictated and finalized at location G.
--- NOTE | 2021-08-11 21:05 | ED.SOB ---
HPI - SOB/Dyspnea General Chief Complaint: Weakness Stated Complaint: AMB Time Seen by Provider: 08/11/21 21:05 Source: patient History of Present Illness HPI Narrative: 65-year-old male with a history of smoking, alcohol use, polysubstance abuse( opiates, methamphetamine, cocaine, THC), COPD, history of aspiration pneumonia, drug overdose presents to the ER via EMS for a 3 day history of -- not feeling well. -- Fever with a T-max of 101. -- Exposure to COVID 4 days ago -- drowsy but arousable. The patient complains of cough and shortness of breath. No chest pain. Pertinent past history: COPD and aspiration Onset (ago): day(s) ( Started 3 days ago) Known history of: COPD and aspiration pneumonia Related Data Home oxygen amount: none Home Medications Medication Instructions Recorded Confirmed albuterol sulfate [ProAir HFA] See Rx Instructions .ROUTE .COMPLEX 04/12/21 08/11/21 famotidine [Acid Stencil Maker See Rx Instructions .ROUTE .COMPLEX 04/12/21 08/11/21 (famotidine)] gabapentin [Neurontin] See Rx Instructions .ROUTE .COMPLEX 04/12/21 08/11/21 loratadine [Allergy Relief See Rx Instructions .ROUTE .COMPLEX 04/12/21 08/11/21 (loratadine)] mirtazapine [Remeron] See Rx Instructions .ROUTE .COMPLEX 04/12/21 08/11/21 Allergies Allergy/AdvReac Type Severity Reaction Status Date / Time No Known Allergies Allergy Verified 08/11/21 21:23 Review of Systems Review of Systems: All systems reviewed & are unremarkable except as noted in HPI and below Constitutional: Constitutional: Reports as per HPI and Reports no additional constitutional complaints Eyes: Eyes: Reports as per HPI and Reports no additional eye complaints ENT: Reports system reviewed and no additional complaints, except as documented Cardiovascular: Cardiovascular: Reports as per HPI and Reports no additional cardiovascular complaints Respiratory: Respiratory: Reports as per HPI, Reports no additional respiratory complaints, Reports cough and Reports dyspnea Comments: patient complained of cough and shortness of breath but none at this time Gastrointestinal: Gastrointestinal: Reports as per HPI and Reports no additional gastrointestinal complaints Genitourinary: Genitourinary: Reports no additional male genitourinary complaints Musculoskeletal: Musculoskeletal: Reports no additional musculoskeletal complaints Integumentary/Breasts: Skin/Breast: Reports system reviewed and no additional complaints, except as docu Neurologic: Reports system reviewed and no additional complaints, except as documented and Reports weakness Psychiatric: Psychiatric: Reports no additional psychiatric complaints Endocrine: Endocrine: Reports no additional endocrine complaints Hematologic/Lymphatic: Hematologic/Lymphatic: Reports no additional hematologic/lymphatic complaints Allergic/Immunologic: Allergic/Immunologic: Reports no additional allergic/immunologic complaints PMFSH Past Medical History Medical History Altered mental status Drug abuse and dependence Overdose Family History Family History Mother Congestive heart failure Social History Social History Smoking packs per day: 1 Smoking cigarettes per day: 20.0 Years smoked: 46 Smoking pack-years: 46.00 Smoking status: Unknown if ever smoked Tobacco type: cigarettes Alcohol intake: unknown Drinks per week: 7 Substance use: current Substance use type: opiates and other Last use: 06/26/21 Spiritual care concerns: No (patient unable to answer) Exam Const: General: no acute distress and ill appearing Other: patient is drowsy but arousable. HENMT: Head: normal to inspection Eyes: Conjunctivae: conjunctivae normal Pupils: Equal, round and reactive pupils present Neck: Neck: normal visual inspection
[2021-08-11 21:14] VITALS: BP 143/79; PULSE 117; RESP 20; TEMP 38.4; O2SAT 100
--- NOTE | 2021-08-11 21:25 | PC.NURSE ---
pt is a poor historian. pt unable to verify his past medical history. pt unable to state his current home medications. pt's home medication list updated from pharmacy list.
--- NOTE | 2021-08-11 21:40 | ECG_ITS ---
Measurements Intervals Smoot Rate: 102 P: -40 AR: 157 QRS: -52 QRSD: 105 T: 65 QT: 360 QTc: 470 Interpretive Statements SINUS TACHYCARDIA WITH FREQUENT SUPRAVENTRICULAR PREMATURE COMPLEXES LEFT AXIS DEVIATION [QRS AXIS < -30] INCOMPLETE RIGHT BUNDLE BRANCH BLOCK [90+ ms QRS DURATION, TERMINAL R IN V1/V2, 40+ ms S IN I/aVL/V4/V5/V6] ABNORMAL ECG COMPARED TO ECG 06/26/2021 03:21:30 SINUS TACHYCARDIA NOW PRESENT Electronically Signed On 08-12-2021 15:35:30 CDT by Winston Mcpherson M.D.
[2021-08-11 22:19] LABS: Basophils Absolute Auto 0.04 K/mm3 (0.00-0.10); Basophils Percent Auto 0.2 % (0.0-1.0); Eosinophils Absolute Auto 0.14 K/mm3 (0.02-0.50); Eosinophils Percent Auto 0.7 % (1.0-6.0); Hematocrit 45.4 % (40.0-54.0); Hemoglobin 15.2 g/dL (14.0-18.0); Immature Granulocyte Absolute 0.23 K/mm3 (0.00-0.00); Immature Granulocyte Percent A 1.2 % (0.0-0.0); Lymphocytes Absolute Auto 0.76 K/mm3 (1.10-4.50); Mean Corpuscular HGB Conc 33.5 g/dL (32.0-36.0); Mean Corpuscular Hemoglobin 30.2 pg (27.0-31.0); Mean Corpuscular Volume 90.3 fL (78.0-102.0); Mean Platelet Volume 8.9 fl (8.7-11.0); Monocytes Absolute Auto 0.72 K/mm3 (0.10-0.90); Monocytes Percent Auto 3.8 % (2.0-11.0); Neutrophils Absolute Auto 17.1 K/mm3 (1.7-7.2); Neutrophils Percent Auto 90.1 % (50.0-70.0); Platelet Count Result 266 K/mm3 (150-420); Red Blood Count 5.03 M/mm3 (4.70-6.10); Red Cell Distribution Width 13.2 % (11.6-14.4)
[2021-08-11 22:36] LABS: D Dimer 1.51 mg/L (0.19-0.50)
[2021-08-11 22:44] LABS: Alanine Aminotransferase 26 U/L (16-63); Alkaline Phosphatase 84 U/L (46-116); Anion Gap 9 mmol/L (8-16); Aspartate Amino Transferase 13 U/L (15-37); Blood Urea Nitrogen 17 mg/dL (7-18); Carbon Dioxide 26 mmol/L (21-32); Chloride 97 mmol/L (98-108); Estimated CRCL calculation 68 ml/min; Estimated Glomerular Filt Rate > 60; Glucose 112 mg/dL (70-99); Osmolality Calculated 276 mOsm/kg (285-295); Potassium 3.6 mmol/L (3.5-5.1); Sodium 132 mmol/L (136-145); Troponin I 9.2 ng/L (0.00-60.4)
[2021-08-11 22:50] LABS: Lipase 46 U/L (73-393); NT Pro B Type Natriuretic Pept 172 pg/mL (0-125)
[2021-08-11 22:55] LABS: SARS-CoV-2 RNA PCR Negative (Negative)
[2021-08-11 23:28] LABS: Base Excess ABG 1.4 mmol/L (0-2); HCO3 ABG 24.1 mmol/L (23-29); Modified Allen's Test Pass; Oxygen Content ABG 19.7 %vol (16.0-22.0); Oxygen Saturation ABG 93.9 % (95-97); Oxyhemoglobin 92.3 % (94-100); PCO2 ABG 32.7 mmHg (35-45); PO2 ABG 62.6 mmHg (80-90); Site Drawn RIGHT RADIAL; Total Hemoglobin 15.2 g/dL (12.0-18.0); pH ABG 7.49 (7.35-7.45)
[2021-08-11 23:29] LABS: Device ROOM AIR
[2021-08-12] MEDS: LACTATED RINGERS 1,000 ML 999 ML IV CONT (00:16)
--- NOTE | 2021-08-12 00:42 | PC.NURSE ---
contacted [facility] for pt transfer. executive housekeeper will contact doctor to call us back.
--- NOTE | 2021-08-12 00:48 | PC.NURSE ---
[facility] returned call, denied pt transfer due to unable to perform procedure related right heart strain.
--- NOTE | 2021-08-12 00:51 | PC.NURSE ---
contacted [facility] for transfer. spoke with juan pablo who will call back.
[2021-08-12 01:06] LABS: Basophils Absolute Auto 0.06 K/mm3 (0.00-0.10); Basophils Percent Auto 0.3 % (0.0-1.0); Hemoglobin 14.1 g/dL (14.0-18.0); Immature Granulocyte Absolute 0.13 K/mm3 (0.00-0.00); Immature Granulocyte Percent A 0.6 % (0.0-0.0); Lymphocytes Percent Auto 5.9 % (18.0-42.0); Mean Corpuscular HGB Conc 33.6 g/dL (32.0-36.0); Mean Corpuscular Hemoglobin 30.4 pg (27.0-31.0); Mean Corpuscular Volume 90.5 fL (78.0-102.0); Mean Platelet Volume 8.8 fl (8.7-11.0); Monocytes Absolute Auto 1.78 K/mm3 (0.10-0.90); Monocytes Percent Auto 8.7 % (2.0-11.0); Neutrophils Absolute Auto 17.2 K/mm3 (1.7-7.2); Neutrophils Percent Auto 84.5 % (50.0-70.0); Platelet Count Result 213 K/mm3 (150-420); Red Blood Count 4.64 M/mm3 (4.70-6.10); Red Cell Distribution Width 13.3 % (11.6-14.4)
[2021-08-12 01:08] LABS: White Blood Count 20.4 K/mm3 (4.8-10.8)
[2021-08-12] MEDS: HEPARIN SODIUM 5,000 UNITS/ML VIAL 6000 UNITS IV PUSH (01:09)
[2021-08-12] MEDS: HEPARIN SOD/D5W 100 UNITS/ML 25,000 UNITS/250 ML BAG 14 UNITS IV CONT (01:19)
--- NOTE | 2021-08-12 01:40 | PC.NURSE ---
Addendum entered by Guevara Garcia RN 08/12/21 02:20: pt to be admitted to 6C Original Note: transfer report given to Gwendolyn at [facility]
--- NOTE | 2021-08-12 02:12 | PC.NURSE ---
[facility] called for pt transfer to [facility]
--- NOTE | 2021-08-12 02:13 | PC.NURSE ---
per md diane, pt can be transferred without obtaining a urine sample for labs.
--- NOTE | 2021-08-12 02:55 | PC.NURSE ---
pt reporting pain with breathing and coughing of 10 out of 10. Md Franco updated - no new orders at this time. pt transferred with infusions - heparin 14ml/hr and vancomycin 1g with approximately 15ml left to infuse.
[2021-08-12 03:02] VITALS: BP 117/69; PULSE 95; RESP 19; TEMP 37.3; O2SAT 94
== END 2021-08-12 03:05 | disposition short-term general hospital (02) ==
PROVIDERS: Emergency Provider Internal Medicine Critical Care Medicine; PCP Physician Assistant
DX: I26.09 Other pulmonary embolism with acute cor pulmonale (principal); R40.0 Somnolence; J18.9 Pneumonia, unspecified organism; Z20.822 Contact with and (suspected) exposure to COVID-19
CPT/HCPCS: 36415; 36600; 70450; 71045; 71275; 74177; 80053; 82805; 83690; 83880; 84484; 85025; 85380; 85610; 87040; 93005; 96361; 96365; 96366; 96367; 96368; 99285; C9803; J1644; J2543; J3370; J7120; Q9967; U0003; U0005

== ENCOUNTER 2021-12-31 09:46 | Outpatient (CLI) | payer OTHER, SELFPAY ==
--- NOTE | ~2021-12-31 | CT_ITS ---
EXAMINATION: CTA chest PE protocol DATE: 12/31/2021 10:46 INDICATION: Chronic pulmonary embolism follow-up TECHNIQUE: Computed tomography angiography (CTA) of the chest was performed with 100 mL Omnipaque-350 intravenous contrast timed to evaluate the pulmonary arteries. Coronal maximum intensity projection 3D-reconstructions were created by the technologist. Automated exposure control and iterative reconst ruction technique were employed. Exam dose: 638.53 mGy-cm total exam DLP. COMPARISON: 08/11/2021 CTA chest FINDINGS: There is diagnostic contrast enhancement of the pulmonary arteries and no evidence of pulmo nary embolism. No thoracic aortic aneurysm or dissection. Normal heart size. Coronary artery calcification. No pericardial or pleural effusion. No hilar or mediastinal mass lesion or lymphadenopathy. No pulmonary infiltrate or consolidation or pulmonary mass lesion is detected. Mild bilateral apical scarring. Prominent degenerative spurring of the lower thoracic spine. No suspicious osteolytic or osteoblastic lesions are noted. IMPRESSION: No evidence of pulmonary embolism or pulmonary mass lesion Reviewed, dictated and finalized at Location A. Reviewed, dictated and finalized at location B.
[2021-12-31 10:12] LABS: Estimated Glomerular Filt Rate > 60
== END 2021-12-31 09:47 | disposition home or self-care (01) ==
LOC: CHSIMG 09:50
PROVIDERS: PCP Physician Assistant
DX: I27.82 Chronic pulmonary embolism (principal)
CPT/HCPCS: 71275; Q9967